=== PATIENT | female | born 1985 | race Caucasian/White ===

== ENCOUNTER 2017-12-07 23:09 | Emergency (ER) | payer BC ==
[2017-12-07 23:50] LABS: Urine Appearance Clear; Urine Blood Negative (Negative); Urine Color Colorless; Urine Ketones Negative (Negative); Urine Protein Negative (Negative); Urine Specific Gravity 1.003 (1.010-1.030); Urine Urobilinogen Negative (Negative)
[2017-12-07 23:57] LABS: ABS Basophils 0.1 10^3/ul (0-0.2); ABS Eosinophils 0.6 10^3/ul (0-0.6); ABS Lymphocytes 3.7 10^3/ul (1.0-4.8); ABS Monocytes 0.6 10^3/ul (0-0.8); ABS Neutrophils 6.5 10^3/ul (1.5-7.7); ABS Nucleated RBC 0 10^3/ul; Hematocrit 35 % (35-47); Hemoglobin 11.8 g/dl (12.0-16.0); Lymphocyte % 32.1 % (25-47); Mean Corpuscular HGB Conc 34 g/dl (31-36); Mean Corpuscular Hemoglobin 28 pg (27-31); Mean Corpuscular Volume 84 fL (80-97); Mean Platelet Volume 7 um3 (7.4-10.4); Nucleated Red Blood Cells % 0.1; Platelet Count 303 10^3/ul (150-450); Red Blood Count 4.18 10^6/ul (4.0-5.4); Red Cell Distribution Width 14 % (10.5-15); White Blood Count 11.5 10^3/ul (3.5-10.8)
[2017-12-08 00:14] LABS: EGFR Non-African American 55.1 (>60)
[2017-12-08 01:29] VITALS: BP 130/72
--- NOTE | 2017-12-08 01:47 | ED ---
HPI Chest Pain - HPI Summary HPI Summary: Patient presents with left anterior chest pain since this morning. She is otherwise healthy although obese. She states the pain is constant, described as an ache, without radiation. She had one episode early this morning with diffuse pain to the right and left anterior chest wall which radiated through to the back, lasting approximately 1 minute. Strong history of anxiety, but states this feels different. Denies any known cardiac history. She states she felt palpitations throughout the day, but is asymptomatic on arrival. Denies any pulmonary history. Denies any cough or congestion, but has had a upper respiratory infection with sinusitis 3 weeks. Symptoms are aggravated by nothing and relieved with nothing. She had taken one Xanax without relief so after noon. She has also taken an aspirin without relief. She denies smoking, OCP use, travel, calf pain. Has never had a DVT or PE. She takes no medications otherwise and has no significant endocrine history to her knowledge. She has had these episodes in the past, most notably 10 years ago when she wore a Holter monitor for a week with no findings. She has never followed up with a senior engineering specialist but has close follow-up with a PCP. - History of Current Complaint Chief Complaint: EDChestPainROMI Time Seen by Provider: 12/07/17 23:25 Hx Obtained From: Patient Onset/Duration: Started Hours Ago Timing: Constant Initial Severity: Moderate Current Severity: Moderate Pain Intensity: 0 Pain Scale Used: 0-10 Numeric Chest Pain Location: Left Anterior Chest Pain Radiates: No Character: Burning Aggravating Factor(s): Exertion Alleviating Factor(s): Nothing Associated Signs and Symptoms: Positive: Negative - Risk Factors Pulmonary Embolism Risk Factors: Negative TAD Risk Factors: Negative AMI/ACS Risk Factors: Obesity - Allergy/Home Medications Allergies/Adverse Reactions: Allergies Allergy/AdvReac Type Severity Reaction Status Date / Time No Known Allergies Allergy Verified 09/14/14 17:26 PMH/Surg Hx/FS Hx/Imm Hx Previously Healthy: Yes Psychiatric History: Reports: Hx Anxiety, Hx Depression - Immunization History Hx Pertussis Vaccination: No Immunizations Up to Date: Unable to Obtain/Confirm Infectious Disease History: No Infectious Disease History: Denies: Traveled Outside the [place] in Last 30 Days - Social History Occupation: Employed Full-time Lives: With Family Alcohol Use: None Hx Substance Use: No Substance Use Type: Reports: None Hx Tobacco Use: No Smoking Status (MU): Never Smoked Tobacco Review of Systems Constitutional: Negative Eyes: Negative Positive: Chest Pain Gastrointestinal: Negative Positive: no symptoms reported, see HPI Musculoskeletal: Negative Skin: Negative All Other Systems Reviewed And Are Negative: Yes Physical Exam Triage Information Reviewed: Yes Vital Signs On Initial Exam: Initial Vitals Temp Pulse Resp BP Pulse Ox 97 F 92 18 142/76 100 12/07/17 23:11 12/07/17 23:11 12/07/17 23:11 12/07/17 23:11 12/07/17 23:11 Vital Signs Reviewed: Yes Appearance: Positive: Well-Appearing, Well-Nourished Skin: Positive: Warm, Skin Color Reflects Adequate Perfusion Head/Face: Positive: Normal Head/Face Inspection Eyes: Positive: EOMI, ELVIS, Conjunctiva Clear Neck: Positive: Supple, No Lymphadenopathy Respiratory/Lung Sounds: Positive: Clear to Auscultation, Breath Sounds Present Cardiovascular: Positive: Normal, RRR, Pulses are Symmetrical in both Upper and Lower Extremities Musculoskeletal: Positive: Normal, Strength/ROM Intact Neurological: Positive: Speech Normal Psychiatric: Positive: Normal, Affect/Mood Appropriate AVPU Assessment: Alert Diagnostics - Vital Signs Vital Signs Temp Pulse Resp BP Pulse Ox 12/08/17 01:28 97.7 F 73 18 130/72 99 12/07/17 23:11 97 F 92 18 142/76 100 - Laboratory Lab Results: Lab Results 12/07/17 12/07/17 12/07/17 Range/Units 23:39 23:46 23:46 WBC 11.5 H (3.5-10.8) 10^3/ul RBC 4.18 (4.0-5.4) 10^6/ul Hgb 11.8 L (12.0-16.0) g/dl Hct 35 (35-47) % MCV 84 (80-97) fL MCH 28 (27-31) pg MCHC 34 (31-36) g/dl RDW 14 (10.5-15) % Plt Count 303 (150-450) 10^3/ul MPV 7 L (7.4-10.4) um3 Neut % (Auto) 56.6 (38-83) % Lymph % (Auto) 32.1 (25-47) % Pettis % (Auto) 5.1 (1-9) % Eos % (Auto) 5.0 (0-6) % Baso % (Auto) 1.2 (0-2) % Absolute Neuts (auto) 6.5 (1.5-7.7) 10^3/ul Absolute Lymphs (auto) 3.7 (1.0-4.8) 10^3/ul Absolute Monos (auto) 0.6 (0-0.8) 10^3/ul Absolute Eos (auto) 0.6 (0-0.6) 10^3/ul Absolute Basos (auto) 0.1 (0-0.2) 10^3/ul Absolute Nucleated RBC 0 10^3/ul Nucleated RBC % 0.1 D-Dimer, Quantitative (Less Than 230) ng/mL Sodium 136 (133-145) mmol/L Potassium 3.3 L (3.5-5.0) mmol/L Chloride 104 (101-111) mmol/L Carbon Dioxide 27 (22-32) mmol/L Anion Gap 5 (2-11) mmol/L BUN 16 (6-24) mg/dL Creatinine 1.13 H (0.51-0.95) mg/dL Est GFR ( Amer) 70.9 (>60) Est GFR (Non-Af Amer) 55.1 (>60) BUN/Creatinine Ratio 14.2 (8-20) Glucose 107 H (70-100) mg/dL Lactic Acid (0.5-2.0) mmol/L Calcium 9.0 (8.6-10.3) mg/dL Magnesium 1.8 L (1.9-2.7) mg/dL Total Bilirubin 0.30 (0.2-1.0) mg/dL AST 17 (13-39) U/L ALT 16 (7-52) U/L Alkaline Phosphatase 69 (34-104) U/L Myoglobin 61.7 (14.3-65.8) ng/mL Troponin I 0.00 (<0.04) ng/mL Total Protein 6.8 (6.4-8.9) g/dL Albumin 3.9 (3.2-5.2) g/dL Globulin 2.9 (2-4) g/dL Albumin/Globulin Ratio 1.3 (1-3) TSH 3.56 (0.34-5.60) mcIU/mL Thyroxine (T4) 7.50 (6.09-12.23) mcg/mL Beta HCG, Quant < 0.60 mIU/mL Urine Color Colorless Urine Appearance Clear Urine pH 7.0 (5-9) Ur Specific [place] 1.003 L (1.010-1.030) Urine Protein Negative (Negative) Urine Ketones Negative (Negative) Urine Blood Negative (Negative) Urine Nitrate Negative (Negative) Urine Bilirubin Negative (Negative) Urine Urobilinogen Negative (Negative) Ur Leukocyte Esterase Negative (Negative) Urine Glucose Negative (Negative) 12/07/17 12/07/17 Range/Units 23:46 23:46 WBC (3.5-10.8) 10^3/ul RBC (4.0-5.4) 10^6/ul Hgb (12.0-16.0) g/dl Hct (35-47) % MCV (80-97) fL MCH (27-31) pg MCHC (31-36) g/dl RDW (10.5-15) % Plt Count (150-450) 10^3/ul MPV (7.4-10.4) um3 Neut % (Auto) (38-83) % Lymph % (Auto) (25-47) % Pettis % (Auto) (1-9) % Eos % (Auto) (0-6) % Baso % (Auto) (0-2) % Absolute Neuts (auto) (1.5-7.7) 10^3/ul Absolute Lymphs (auto) (1.0-4.8) 10^3/ul Absolute Monos (auto) (0-0.8) 10^3/ul Absolute Eos (auto) (0-0.6) 10^3/ul Absolute Basos (auto) (0-0.2) 10^3/ul Absolute Nucleated RBC 10^3/ul Nucleated RBC % D-Dimer, Quantitative < 200 (Less Than 230) ng/mL Sodium (133-145) mmol/L Potassium (3.5-5.0) mmol/L Chloride (101-111) mmol/L Carbon Dioxide (22-32) mmol/L Anion Gap (2-11) mmol/L BUN (6-24) mg/dL Creatinine (0.51-0.95) mg/dL Est GFR ( Amer) (>60) Est GFR (Non-Af Amer) (>60) BUN/Creatinine Ratio (8-20) Glucose (70-100) mg/dL Lactic Acid 0.9 (0.5-2.0) mmol/L Calcium (8.6-10.3) mg/dL Magnesium (1.9-2.7) mg/dL Total Bilirubin (0.2-1.0) mg/dL AST (13-39) U/L ALT (7-52) U/L Alkaline Phosphatase (34-104) U/L Myoglobin (14.3-65.8) ng/mL Troponin I (<0.04) ng/mL Total Protein (6.4-8.9) g/dL Albumin (3.2-5.2) g/dL Globulin (2-4) g/dL Albumin/Globulin Ratio (1-3) TSH (0.34-5.60) mcIU/mL Thyroxine (T4) (6.09-12.23) mcg/mL Beta HCG, Quant mIU/mL Urine Color Urine Appearance Urine pH (5-9) Ur Specific [place] (1.010-1.030) Urine Protein (Negative) Urine Ketones (Negative) Urine Blood (Negative) Urine Nitrate (Negative) Urine Bilirubin (Negative) Urine Urobilinogen (Negative) Ur Leukocyte Esterase (Negative) Urine Glucose (Negative) Result Diagrams: 12/07/17 23:46 12/07/17 23:46 Lab Statement: Any lab studies that have been ordered have been reviewed, and results considered in the medical decision making process. Chest Pain Course/Dx - Course Course Of Treatment: During the course of treatment the patient is evaluated for left anterior chest pain. Francis 0.00. D-dimer negative at less than 200. Chest x-ray read by Dr. Mckinley and myself Adore Barry PA-C as no cardiopulmonary disease. EKG sinus rhythm. She remained asymptomatic throughout her stay. I have given her all information and have given her her test results. She feels comfortable with discharge and will follow-up with Dr. Winston lewis and Dr. Gonzalez, ENT for 5 weeks weeks chronic sinusitis with 3 bouts of antibiotics without improvement. - Diagnoses Provider Diagnoses: Chest wall pain Discharge - Discharge Plan Condition: Stable Disposition: HOME Patient Education Materials: Chest Wall Pain (ED) Referrals: Jim Gonzalez MD [Medical Doctor] - Jimmie Flores III, NP [Primary Care Provider] - Rashawn Montero MD [Medical Doctor] - Additional Instructions: Please follow up with cardiology Follow-up with ENT for any worsening sinus pressure symptoms At first onset of chest pain, taking ibuprofen for relief If you feel this is a panic attack, take Xanax If her symptoms do not resolve, please return to the ED immediately
--- NOTE | 2017-12-08 10:16 | RAD ---
INDICATION: Chest pain COMPARISON: None TECHNIQUE: PA and lateral views of the chest were obtained. FINDINGS: The heart and mediastinum are normal in size and contour. The lungs are grossly clear. There is no evidence of large pleural effusion. Visualized bones are normal for the patient's age. There is no radiographic evidence of free air beneath the diaphragm IMPRESSION: No radiographic evidence of acute cardiopulmonary disease.
== END 2017-12-08 01:28 | disposition home or self-care (01) ==
LOC: ED 23:09
DX: R07.89 Other chest pain (principal)
CPT/HCPCS: 36415; 71046; 80053; 81003; 83605; 83735; 83874; 84436; 84443; 84484; 84702; 85025; 85379; 93005; 99284

== ENCOUNTER 2018-03-05 08:36 | Day surgery (SDC) | payer BC ==
[~2018-03-05 08:36] MED LIST: Buffered Lidocaine 0.9% SYRIN* 5 ML/SYR SYRINGE INTRADERM ONE
[2018-03-05] MEDS ORDERED: Buffered Lidocaine 0.9% SYRIN* 5 ML/SYR SYRINGE ONE (08:41)
[2018-03-05] MEDS ORDERED: Midazolam* 1 MG/ML 2 ML VIAL (2 MG) ONE (09:54)
[2018-03-05] MEDS ORDERED: fentaNYL* 50 MCG/ML 2 ML VIAL (100 MCG VIAL) ONE ×2 (09:54→11:03)
[2018-03-05] MEDS ORDERED: Lidocaine 2% EPI 1:200000 MPF*10-20 ML VIAL ONE (10:40)
[2018-03-05] MEDS ORDERED: Oxymetazoline 0.05% NASAL SPR* 15 ML BTL ONE (10:40)
[2018-03-05] MEDS ORDERED: Gelatin ADSORBABLE (OPHTH)* OPHTH.FILM ONE (10:41)
[2018-03-05] MEDS ORDERED: Bacitracin OINTMENT* 0.5% 0.5 oz TUBE ONE (10:41)
[2018-03-05] MEDS ORDERED: Gelfoam 12-7 ADSORBABL SPONGE* 1 EA SPONGE ONE ×2 (10:41→11:21)
[2018-03-05] MEDS ORDERED: Dexamethasone IV* 4 MG/ML 1 ML (4 MG) ONE (11:03)
[2018-03-05] MEDS ORDERED: Ondansetron INJ* 2 MG/ML VIAL ONE (11:03)
[2018-03-05] MEDS ORDERED: Lidocaine 2% PF * 5 ML VIAL ONE (11:03)
[2018-03-05] MEDS ORDERED: Propofol* 10 MG/ML 20 ML BTL IV PUSH ONE (11:03)
[2018-03-05] MEDS ORDERED: Succinylcholine* 20 MG/ML 10 ML VIAL ONE (11:03)
[2018-03-05] MEDS ORDERED: PROCHLORPERAZINE INJ 5 MG/ML 2 ML VIAL IV PRN (11:23)
[2018-03-05] MEDS ORDERED: Acetaminophen TAB* 325 MG PO PRN (11:23)
[2018-03-05] MEDS ORDERED: oxyCODONE TAB* 5 MG TAB PO PRN (11:23)
[2018-03-05] MEDS ORDERED: Naloxone* 0.4 MG/ML 1 ML VIAL IV PRN (11:23)
[2018-03-05] MEDS ORDERED: Ibuprofen TAB* 600 MG PO PRN (11:23)
[2018-03-05] MEDS ORDERED: Triamcinolone Acetonide* 40 MG/ML 1 ML VIAL ONE (11:46)
[2018-03-05] MEDS ORDERED: Acetaminophen TAB* 325 MG ONE (12:44)
[2018-03-05] MEDS ORDERED: oxyCODONE TAB* 5 MG TAB ONE (13:46)
[2018-03-05 14:02] VITALS: BP 152/93
--- NOTE | 2018-03-06 03:11 | OP ---
DATE OF OPERATION: 03/05/18 - [facility] DATE OF : 81 SURGEON: Yvan Hodgson MD PRE-OP DIAGNOSIS: Chronic sinusitis. POST-OP DIAGNOSIS: Chronic sinusitis. OPERATIVE PROCEDURES: Bilateral video endoscopic maxillary antrostomy, bilateral anterior posterior ethmoidectomy and bilateral frontal duct balloon sinus dilatation. BRIEF HISTORY: This 32-year-old female with longstanding history of chronic symptoms of sinusitis elected for surgical management having failed medical management. She had been on oral steroids, nasal steroids and oral antibiotics without improvement. CT scan shows extensive involvement of the ethmoid and frontal sinuses as well as some patchy opacification of the maxillary sinus. DESCRIPTION OF PROCEDURE: The patient was taken to the operating room, general anesthetic was given, and the patient was intubated. The nose was decongested with Afrin placed pledgets. A 0-degree telescope and 30-degree telescope, and other endoscopic sinus surgery instruments including the balloon, sinuplasty instruments and a micro-shaver were utilized. Next we turned our attention to infiltrate the uncinate region on both sides with 2% lidocaine with epinephrine and the ethmoidal region with 2% lidocaine with epinephrine. We turned our attention to the left side. The uncinate process was peeled out anteriorly. Microshaver was used to remove the uncinate process completely. The antrostomy was then widened. The ethmoidal bulla resection was carried out using a microshaver coursing posteriorly through the ground lamella towards the skull base and then superiorly from the skull base towards the nasal frontal duct area and laterally towards the lamina papyracea removing extensive polypoidal hyperplastic mucosa. Next, we turned our attention to the nasal frontal duct area. Guidewire was used to insert into the nasal frontal duct into the frontal sinus and then subsequently a balloon was inserted at 12 bar pressure, three separate passes. The middle turbinate and lateral nasal wall was then packed with Gelfilm/ Gelfoam with the spacer between the middle turbinate and lateral nasal wall. Next, we turned our attention to the right side. Here too, again the uncinate process was removed. Antrostomy was widened using a microshaver. The antrum was copiously irrigated. The ethmoidal resection was carried out coursing from the front face of the ethmoidal bulla through the ground lamella towards the skull base and working superiorly into the nasal frontal duct and laterally towards the lamina papyracea. Once adequate hyperplastic and polypoidal mucosa was removed, guidewire was placed through the nasal frontal duct area and confirmed and subsequently multiple passes with a 7 mm balloon was carried out to a 12 bar pressure. Copious irrigation of both frontal sinuses was then carried out. Gelfilm and Gelfoam was used in the spacer between the middle turbinate and lateral nasal wall. The patient was then awakened and extubated and sent to the recovery room in stable condition. Instrument and sponge counts were correct. Blood loss minimal. [id number] #: [id number] MTDD
== END 2018-03-05 14:46 | disposition home or self-care (01) ==
LOC: OR 08:36
PROVIDERS: ATTEND Otolaryngology
DX: J32.8 Other chronic sinusitis (principal); J31.0 Chronic rhinitis; E66.01 Morbid (severe) obesity due to excess calories; Z68.42 Body mass index [BMI] 45.0-49.9, adult; F41.8 Other specified anxiety disorders; Z87.891 Personal history of nicotine dependence
CPT/HCPCS: 81025; 88305; A9270-GY; J0330; J1100; J2250; J2405; J2704; J3010; J3301